=== PATIENT | male | born 1975 | race Hispanic/Latino ===

== ENCOUNTER 2021-06-20 09:45 | Emergency (ER) | payer OTHER ==
[~2021-06-20] VITALS: Ht 162.6 cm; Wt 117.9 kg
[~2021-06-20 09:45] MED LIST: ALBU8.5H8 IH; AMLO-257 PO; ATOR10TA69 PO; FERR-72 PO; FURO20TA6 PO; GLIP10TA9 PO; LISI40TA9 PO; METF-446 PO; METO200T49 PO; PRED20TA3 PO
[2021-06-20 09:46] VITALS: BP 150/103
== END 2021-06-20 10:57 | disposition home or self-care (01) ==
LOC: EDH 09:45
DX: T82.594A Other mechanical complication of infusion catheter, initial encounter (principal); L02.211 Cutaneous abscess of abdominal wall; I10 Essential (primary) hypertension; E11.9 Type 2 diabetes mellitus without complications; F43.10 Post-traumatic stress disorder, unspecified; F17.200 Nicotine dependence, unspecified, uncomplicated; Z79.52 Long term (current) use of systemic steroids; Z79.84 Long term (current) use of oral hypoglycemic drugs; Z79.899 Other long term (current) drug therapy; Z86.16 Personal history of COVID-19; Y83.8 Other surgical procedures as the cause of abnormal reaction of the patient, or of later complication, without mention of misadventure at the time of the procedure; Y92.89 Other specified places as the place of occurrence of the external cause
CPT/HCPCS: 99281

== ENCOUNTER 2021-10-27 15:48 | Emergency (ER) | payer OTHER ==
[~2021-10-27] VITALS: Ht 162.6 cm; Wt 117.9 kg
[2021-10-27 15:52] VITALS: BP 147/92
[2021-10-27] MEDS ORDERED: PREDNISONE 20 MG TABLET PO ONE (17:00)
[2021-10-27] MEDS ORDERED: PRED20TA3 PO (17:01)
== END 2021-10-27 17:51 | disposition home or self-care (01) ==
LOC: EDH 15:48
DX: G51.0 Bell's palsy (principal)

== ENCOUNTER → 2022-05-11 | Outpatient (CLI) | payer OTHER, SELFPAY | END | disposition home or self-care (01) | LOC: LAB 10:14 | PROVIDERS: ATTEND Hospitalist | DX: Z20.822 Contact with and (suspected) exposure to COVID-19 (principal) | CPT/HCPCS: 87426 ==

== ENCOUNTER → 2022-07-10 | Outpatient (CLI) | payer OTHER | END | disposition home or self-care (01) | LOC: RAH 07:30 | PROVIDERS: ATTEND Internal Medicine Gastroenterology | DX: R14.0 Abdominal distension (gaseous) (principal) | CPT/HCPCS: 78264; A9541 ==